=== PATIENT | female | born 1965 | race Native Hawaiian/Other Pacific Islander ===

== ENCOUNTER 2020-10-16 16:26 | Outpatient (CLI) | payer OTHER ==
[2020-10-16 17:40] LABS: POTASSIUM 4.1 mmol/L (3.6-5.2)
== END 2020-10-16 20:45 | disposition home or self-care (01) ==
LOC: LAB 16:26
PROVIDERS: ATTEND Family Medicine
DX: E11.9 Type 2 diabetes mellitus without complications (principal); I10 Essential (primary) hypertension; E78.5 Hyperlipidemia, unspecified; E55.9 Vitamin D deficiency, unspecified; E53.8 Deficiency of other specified B group vitamins
CPT/HCPCS: 80053; 80061; 82306; 82607; 83036; 84439; 84443